=== PATIENT | female | born 1955 | race Caucasian/White ===

== ENCOUNTER → 2016-04-03 | Outpatient (CLI) | payer BC ==
[2016-04-03 11:12] LABS: BASO % 0.3 %; BASO ABS # 0.03 K/uL (0-0.2); COMPLETE YES; EOS % 1.7 %; HEMATOCRIT 41.7 % (37-47); IG% 0.3 %; LYMPH % 36.1 %; LYMPH ABS # 3.11 K/uL (1.2-3.4); MEAN CELL VOLUME 90.7 fL (80-100); MEAN CORPUSCULAR HGB CONC 33.1 g/dl (32-36); MEAN PLATELET VOLUME 9.9 fL (7.4-10.4); MONO % 8.8 %; NEUT % 52.8 %; PLATELET COUNT 331 K/uL (130-400); WHITE BLOOD COUNT 8.61 K/uL (4.8-10.8)
[2016-04-03 11:59] LABS: BLOOD UREA NITROGEN 12 mg/dl (7-18); BUN/CREATININE RATIO 16.2 (10-20); CALCIUM 9.2 mg/dl (8.5-10.1); CARBON DIOXIDE 24 mmol/L (21-32); CHLORIDE 103 mmol/L (98-107); CHOLESTEROL 253 mg/dl (0-200); CREATININE 0.74 mg/dl (0.60-1.20); GLUCOSE 86 mg/dl (70-99); POTASSIUM 4.1 mmol/L (3.5-5.1); SODIUM 139 mmol/L (136-145)
[2016-04-03 12:03] LABS: CHOLESTEROL/HDL RATIO 4.7; HDL CHOLESTEROL 54 mg/dl; LDL CHOLESTEROL CALCULATED 165 mg/dl; TRIGLYCERIDES 169 mg/dl (0-150); VERY LOW DENSITY LIPOPROT CALC 34 mg/dl
== END | disposition home or self-care (01) ==
LOC: C.LAB1850 10:03
PROVIDERS: ATTEND Internal Medicine
DX: E78.5 Hyperlipidemia, unspecified (principal); R53.83 Other fatigue; R73.9 Hyperglycemia, unspecified

== ENCOUNTER → 2016-05-16 | Outpatient (CLI) | payer BC ==
--- NOTE | 2016-05-16 16:36 | MAMMOGRAPHY REPORT ---
BILATERAL DIGITAL SCREENING MAMMOGRAM WITH CAD: 05/16/2016 CLINICAL HISTORY: Routine screening. Patient has no complaints. TECHNIQUE: Current study was also evaluated with a Computer Aided Detection (CAD) system. Bilatera l CC and MLO views were obtained. COMPARISON: Comparison is made to exams dated: 05/04/2015 mammogram, 04/01/2014 mammogram, 03/25/2013 u ltrasound, and 03/25/2013 mammogram - [facility]. BREAST COMPOSITION: There are scattered areas of fibroglandular density in both breasts. FINDINGS: No suspicious masses, calcifications, or areas of architectural distortion are noted in e ither breast. There has been no significant interval change compared to prior exams. Small bilatera l circumscribed benign-appearing masses seen within the left medial anterior breast are not signific antly changed. Benign-appearing calcifications in the left medial posterior breast are also stable compared to multiple prior exams. IMPRESSION: ACR BI-RADS CATEGORY 2: BENIGN There is no mammographic evidence of malignancy. A 1 year screening mammogram is recommended. The p atient will receive written notification of the results. Approximately 10% of breast cancers are not detected with mammography. A negative mammographic repor t should not delay biopsy if a clinically suggestive mass is present. Gabby Mendoza M.D. /:05/16/2016 15:46:35 Editor School Photograph: Carline Dorman, [facility] letter sent: Normal 1/2 BI-RADS Code: ACR BI-RADS Category 2: Benign
== END | disposition home or self-care (01) ==
LOC: C.MAMM 14:44
PROVIDERS: ATTEND Internal Medicine
DX: Z12.31 Encounter for screening mammogram for malignant neoplasm of breast (principal)

== ENCOUNTER → 2016-07-10 | Outpatient (CLI) | payer OTHER | LOC: C.PATH 17:04 | PROVIDERS: ATTEND Dermatology | DX: D49.2 Neoplasm of unspecified behavior of bone, soft tissue, and skin (principal); L81.4 Other melanin hyperpigmentation ==

== ENCOUNTER → 2016-08-06 | Outpatient (CLI) | payer OTHER | END | disposition home or self-care (01) | LOC: C.PATHSPEC 11:18 | PROVIDERS: ATTEND Plastic Surgery | DX: D23.39 Other benign neoplasm of skin of other parts of face (principal) ==

== ENCOUNTER → 2016-08-29 | Outpatient (CLI) | payer OTHER | END | disposition home or self-care (01) | LOC: C.PATHSPEC 16:14 | PROVIDERS: ATTEND Dermatology | DX: L82.0 Inflamed seborrheic keratosis (principal) ==

== ENCOUNTER 2018-11-16 04:21 | Inpatient (IN) ==
--- OUTSIDE RECORDS SUMMARY | 2018-11-16 04:23 | External Medical Summary | Continuity of Care Document ---
:1955 Author Name Karly Wheeler, Provider Address Unavailable Unavailable , Care Team Providers Name Role Phone Adrian Isabel M.D. Unavailable [email or web address] [email or web address] Unavailable [email or web address] [email or web address] Jose Angel ISABEL M.D. 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) Neoplasm of uncertain behavior of skin (238.2) (D48.5) Seborrheic keratosis, inflamed (702.11) (L82.0) Hyperlipidemia (272.4) (E78.5) Hyperglycemia (790.29) (R73.9) Facial lesion (709.9) (L98.9) Need for hepatitis C screening test (V73.89) (Z11.59) Depression with anxiety (300.4) (F41.8) Fatigue (780.79) (R53.83) Rib pain on right side (786.50) (R07.81) Lumbar radiculopathy (724.4) (M54.16) Tobacco use (305.1) (Z72.0) Allergies and Adverse Reactions Sulfa Drugs (Allergy) Medications Fish Oil Double Strength 1200 MG Oral Capsule; TAKE 4 CAPSULE Daily AVI Marshall Start: 27-Sep-2010 Refills: 0 Amoxicillin-Pot Clavulanate 875-125 MG O ral Tablet; TAKE 1 TABLET EVERY 12 HOURS WITH MEALS UNTIL GONE. Liam Begum Start: 28-Dec-2016 Quantity: 20 Refills: 0 Citalopram Hydrobromide 40 MG Oral Tablet; TAKE 1 TABL ET DAILY. Liam Isabel Start: 12-Oct-2010 Quantity: 30 Refills: 11 Procedures History of Oophorectomy - Bilateral (Removal Of Both Ovaries ) Status: Completed History of Small Bowel Resection Status: Completed Immunizations Influenza On: 24-Jan-2012 10:20 Lot #: [id number], [employer] Influenza On: 15-Jan-2013 9:28 Lot #: [id number], [employer]FI [employer]UR Fluzone INJ On: 10-Feb-2015 10:24 Lot #: [id number], [employer]OFI PA[employer]UR Family History Mother Family history of Diabetes Mellitus (V18.0) Status: Active Father Family history of malignant neoplasm (V16.9) (Z80.9) Status: Active Social History - Smoking Status Smoker. current status unknown Interventions Medication ChangesAmoxicillin-Pot Clavulanate 875-125 MG Oral Tablet - Start Plan of Treatment Planned Observations Planned Goals not documented Results No Known Results Results not documented Encounters Appointment; Friday, Provider 28-Dec-2016 9:00 Encounter Diagnosis: Problem not documented
[2018-11-16] MEDS ORDERED: ONDANSETRON INJ 2 MG/ML 2 ML VIAL IV STA (04:43)
[2018-11-16] MEDS ORDERED: HYDROmorphone INJ 0.5 MG/0.5 ML SYR IV STA ×2 (04:43→06:37)
[2018-11-16] MEDS ORDERED: SODIUM CHLORIDE 0.9% 500 ML IV SCH ×2 (04:45→06:15)
[2018-11-16 05:05] LABS: Basophils # (auto) 0.02 K/uL (0-0.2); Basophils % (auto) 0.1 %; Eosinophils # (auto) 0.08 K/uL (0-0.5); Eosinophils % (auto) 0.5 %; Hematocrit (blood only) 42.3 % (37-47); Hemoglobin 14.4 g/dL (12.0-16.0); Immature Granulocytes # (auto) 0.03 K/uL (0.00-0.02); Immature Granulocytes % (auto) 0.2 %; Lymphocytes # (auto) 1.75 K/uL (1.2-3.4); Lymphocytes % (auto) 11.7 %; Mean Corpuscular Hemoglobin 31.5 pg (25-34); Mean Corpuscular Volume 92.6 fL (80-100); Mean Platelet Volume 10.1 fL (7.4-10.4); Monocytes # (auto) 0.54 K/uL (0.11-0.59); Monocytes % (auto) 3.6 %; Neutrophils # (auto) 12.49 K/uL (1.4-6.5); Neutrophils % (auto) 83.9 %; Platelet Count 267 K/uL (130-400); RDW Coefficient of Variation 12.7 % (11.5-14.5); RDW Standard Deviation 42.8 fL (36.4-46.3); Red Blood Count 4.57 M/uL (4.2-5.4); White Blood Count 14.91 K/uL (4.8-10.8)
[2018-11-16 05:22] LABS: Alanine Aminotransferase 45 U/L (12-78); Albumin Level 3.7 gm/dl (3.4-5.0); Aspartate Aminotransferase 16 U/L (15-37); BUN Creatinine Ratio 31.4 (10-20); Blood Urea Nitrogen 21 mg/dl (7-18); Calcium 9.4 mg/dl (8.5-10.1); Carbon Dioxide 30 mmol/L (21-32); Chloride 104 mmol/L (98-107); Est GFR (African American) 107.7; Est GFR (Non-African American) 92.9; Glucose 129 mg/dl (70-99); Lipase 55 U/L (73-393); Potassium 3.6 mmol/L (3.5-5.1); Sodium 141 mmol/L (136-145)
[2018-11-16 05:25] LABS: Albumin Globulin Ratio 1.1 (0.9-2); Alkaline Phosphatase 78 U/L (45-117); Bilirubin,Total 0.6 mg/dl (0.2-1); Globulin 3.4 gm/dl (2.5-4.0); Total Protein 7.1 gm/dl (6.4-8.2)
[2018-11-16 05:30] LABS: POC Urine Blood 50 (Negative); POC Urine Glucose 1000 (Normal); POC Urine Ketones Negative (Negative); POC Urine Leukocytes Negative (Negative); POC Urine Nitrite Negative (Negative); POC Urine Protein Trace (Negative)
[2018-11-16 05:36] LABS: Appearance Urine Clear (Clear); Bacteria Urine Automated Negative (Negative); Bilirubin Urine Negative (Negative); Blood Urine 1+ (Negative); Cast Urine Automated 0 /lpf (0-5); Color Urine Yellow; Glucose Urine UA 3+ (Negative); Ketones Urine Negative (Negative); Leukocyte Esterase Urine Negative (Negative); Nitrite Urine Negative (Negative); Protein Urine Negative (Negative); RBC Urine Automated 0-4 /hpf (0-4); Specific Gravity Urine 1.022 (1.000-1.030); Urobilinogen Urine Negative (Negative)
[2018-11-16] MEDS ORDERED: IOVERSOL 100ml IV PRN (05:38)
[2018-11-16 06:28] LABS: Estimated Average Glucose 114 mg/dl; Hemoglobin A1C 5.6 % (4.5-5.6)
--- NOTE | 2018-11-16 07:12 | Emergency Department Note ---
Entered by Rubina Mora acting as a scribe for History of Present Illness General Chief complaint: Abdominal Pain Stated complaint: BACK PAIN, ABD PAIN Time Seen by Provider: 11/16/18 04:30 Source: patient History of Present Illness Onset (ago): hour(s) 5 Location: abdomen Radiation: back Severity: similar to prior episodes Pain Consistency: + intermittent Maximum Pain Intensity: 4 Quality: + burning Exacerbated By: + movement Associated symptoms: + nausea/vomiting, + shortness of breath and + other (positive increased frequency of urination; negative burning with urination; negative leg cramping; negative leg swelling) The patient is a 63 year old female who presents to the Emergency Room with complaints of intermittent abdominal pain that began at about 2330, 5 hours prior to arrival. The patient states that her pain radiates around to her back and she describes her pain as a burning. She reports shortness of breath and nausea with each episode, and states that she vomited once since her pain began. The patient states that she has an episode of this pain about every 15 minutes. She states that her pain is exacerbated with movement. She states that this is similar to a prior episode of a bowel obstruction several years ago. The patient denies burning with urination, leg cramping, and leg swelling. The patient states that she just got home from vacation 2 days ago and believed she may have a bladder infection as she has had increased frequency of urination. She denies any recent trauma. The patient states that she lost 70 pounds over the last 18 months through [employer]. Home Medications Home Medications Medication Instructions Recorded Confirmed Type No Known Home Medications 11/16/18 11/16/18 History Allergies Allergy/AdvReac Type Severity Reaction Status Date / Time Sulfa (Sulfonamide Allergy Intermediate HIVES Verified 11/16/18 05:11 Antibiotics) Past Med/Surg History Family History Other No pertinent family history in first degree relatives Social History Preferred Language: Italian Communication Ability: Effective Beliefs That Will Affect Care: None Current Living Situation: Spouse Other Information That Helps Us Care for You: No Feels Safe at Home: Yes Safety Concerns: Feels Safe At This Time Smoking Status: Current every day smoker Tobacco Type: cigarettes ; Cigarettes Per Day: 20 ; Hx Alcohol Use: No Hx Substance Use: No Review of Systems See HPI for pertinent positives & negatives. and A total of 10 systems reviewed and were otherwise negative Physical Exam Vital Signs Vital Signs - 24 hr 11/16/18 04:24 11/16/18 05:00 11/16/18 05:21 Temperature 36.7 C Temperature Source Oral Sepsis Recent Fever Within 48 Hours No Sepsis New/Unexplained Change in Mental Status No Sepsis Action Taken by Nursing No Action Required Pulse Rate 78 Pulse Rate [Finger] 63 Respiratory Rate 18 16 Respiratory Effort / Characteristics Non-Labored Spontaneous Respiratory Depth Normal Blood Pressure 125/69 Blood Pressure [Right Arm] 121/69 Blood Pressure Mean 87 Blood Pressure Mean [Right Arm] 86 Blood Pressure Position Sitting Pulse Oximetry 95 95 96 Oxygen Delivery Method Room Air Room Air Room Air 11/16/18 05:45 11/16/18 06:35 Temperature Temperature Source Sepsis Recent Fever Within 48 Hours Sepsis New/Unexplained Change in Mental Status Sepsis Action Taken by Nursing Pulse Rate Pulse Rate [Finger] 72 64 Respiratory Rate 18 18 Respiratory Effort / Characteristics Non-Labored Spontaneous Respiratory Depth Normal Blood Pressure Blood Pressure [Right Arm] 130/56 L 125/56 L Blood Pressure Mean Blood Pressure Mean [Right Arm] 80 79 Blood Pressure Position Pulse Oximetry 93 95 Oxygen Delivery Method Room Air HEENT: Head - normocephalic and atraumatic Pupils are equal, round, and reactive to light. Extraocular eye muscles are intact, and sclera are anicteric. Nose - moist nasal mucosa without discharge. Mouth - moist buccal mucosa. Oropharynx is nonerythematous and there is no tonsillar exudate or edema noted. Neck: Supple; no cervical lymphadenopathy or nuchal rigidity. Heart: Regular rate and rhythm. There is a normal S1 and S2 with no murmurs, clicks, or gallops appreciated. Lungs: Clear to auscultation bilaterally with no wheezes, rales, or rhonchi. Abdomen: Pain in the right upper quadrant with palpation. Soft, nondistended, with good bowel sounds. There are no palpable pulsatile masses or hepatosplenomegaly. There is no guarding, rigidity, or rebound noted. Extremities: No evidence of cyanosis, clubbing, or edema. There are easily palpable peripheral pulses. Skin: warm and dry with good turgor and no rashes. Course 0434: Past medical records reviewed. The patient was evaluated in room B7. A complete history and physical exam was performed. An IV lock was initiated and labs were drawn as above. 0444: Ordered Dilaudid 0.5 mg IV and Zofran 4 mg IV. Patient will go for plain films of the abdomen. 0515: Ordered Sodium Chloride 500 mls @ 999 mls/hr IV. 0518: Upon reevaluation, the patient states that she has not had any other episodes of pain. She will give a urine specimen and go for a CT. 0701: [facility]. Consultations Consultation #1: I [facility] evaluation. Time: 07:01 Administered Medications Acetaminophen (Tylenol) 650 mg PO Q4H PRN PRN Reason: pain/fever Stop: 12/16/18 09:20 Last Admin: 11/16/18 15:53 Dose: 650 mg Documented by: [id number] Parenteral Electrolytes (Normosol-R) 1,000 mls @ 80 mls/hr IV .[id number] LUKE Stop: 12/16/18 09:44 Last Admin: 11/16/18 22:39 Dose: 80 mls/hr Documented by: [id number] Infusion: 11/16/18 22:14 Dose: 80 mls/hr Documented by: [id number] Admin: 11/16/18 09:44 Dose: 80 mls/hr Documented by: [id number] Famotidine 20 mg/ Syringe 5 mls @ 2.5 mls/min IV DAILY LUKE Stop: 12/16/18 10:29 Last Admin: 11/16/18 10:46 Dose: 2.5 mls/min Documented by: [id number] Ciprofloxacin (Cipro) 400 mg in 200 mls @ 100 mls/hr IV BID LUKE; Protocol Stop: 11/18/18 12:44 Last Infusion: 11/17/18 00:32 Dose: 0 mls/hr Documented by: [id number] Admin: 11/16/18 22:30 Dose: 100 mls/hr Documented by: [id number] Infusion: 11/16/18 17:01 Dose: 0 mls/hr Documented by: [id number] Admin: 11/16/18 14:19 Dose: 100 mls/hr Documented by: [id number] Morphine Sulfate (Morphine Sulfate) 4 mg IV Q4H PRN PRN Reason: Pain Stop: 11/30/18 08:33 Last Admin: 11/16/18 08:37 Dose: 4 mg Documented by: [id number] Ondansetron HCl (Zofran) 4 mg IV Q4H PRN PRN Reason: Nausea Stop: 12/16/18 09:20 Last Admin: 11/16/18 14:16 Dose: 4 mg Documented by: [id number] Discontinued Medications Hydromorphone HCl (Dilaudid) 0.5 mg IV NOW STA Stop: 11/16/18 04:44 Last Admin: 11/16/18 05:01 Dose: 0.5 mg Documented by: [id number] Hydromorphone HCl (Dilaudid) 0.5 mg IV NOW STA Stop: 11/16/18 06:38 Last Admin: 11/16/18 06:38 Dose: 0.5 mg Documented by: [id number] Sodium Chloride (Nss) 500 mls @ 999 mls/hr IV .Q31M LUKE Stop: 11/16/18 05:15 Last Infusion: 11/16/18 05:28 Dose: 0 mls/hr Documented by: [id number] Admin: 11/16/18 05:01 Dose: 999 mls/hr Documented by: [id number] Sodium Chloride (Nss) 500 mls @ 125 mls/hr IV .Q4H LUKE Stop: 12/16/18 06:14 Last Infusion: 11/16/18 09:30 Dose: 0 mls/hr Documented by: [id number] Admin: 11/16/18 06:15 Dose: 125 mls/hr Documented by: [id number] Ioversol (Optiray 320 100ml) 94 ml IV ONCE PRN PRN Reason: Interaction Checking Stop: 11/20/18 05:37 Last Admin: 11/16/18 05:39 Dose: 94 ml Documented by: [id number] Ondansetron HCl (Zofran) 4 mg IV NOW STA Stop: 11/16/18 04:44 Last Admin: 11/16/18 05:01 Dose: 4 mg Documented by: [id number] Medical Decision Making Differential Diagnosis Differential diagnoses include small bowel obstruction, ureteral colic, pyelonephritis, cholecystitis, colitis, and others were considered. Medical Records Attestation: I reviewed the patient's medical records. Home Medications Current Medication List: was personally reviewed by me Laboratory Data Attestation: I reviewed the patient's lab results. Result diagrams: 11/16/18 04:56 11/16/18 04:56 Lab Results 11/16/18 11/16/18 11/16/18 Range/Units 04:56 04:56 04:56 WBC 14.91 H (4.8-10.8) K/uL RBC 4.57 (4.2-5.4) M/uL Hgb 14.4 (12.0-16.0) g/dL Hct 42.3 (37-47) % MCV 92.6 (80-100) fL MCH 31.5 (25-34) pg MCHC 34.0 (32-36) g/dL RDW Std Deviation 42.8 (36.4-46.3) fL RDW Coeff of Aster 12.7 (11.5-14.5) % Plt Count 267 (130-400) K/uL MPV 10.1 (7.4-10.4) fL Immature Gran % (Auto) 0.2 % Neut % (Auto) 83.9 % Lymph % (Auto) 11.7 % [place] % (Auto) 3.6 % Eos % (Auto) 0.5 % Baso % (Auto) 0.1 % Immature Gran # (Auto) 0.03 H (0.00-0.02) K/uL Neut # (Auto) 12.49 H (1.4-6.5) K/uL Lymph # (Auto) 1.75 (1.2-3.4) K/uL [place] # (Auto) 0.54 (0.11-0.59) K/uL Eos # (Auto) 0.08 (0-0.5) K/uL Baso # (Auto) 0.02 (0-0.2) K/uL Sodium 141 (136-145) mmol/L Potassium 3.6 (3.5-5.1) mmol/L Chloride 104 (98-107) mmol/L Carbon Dioxide 30 (21-32) mmol/L Anion Gap 7.0 (3-11) BUN 21 H (7-18) mg/dl Creatinine 0.67 (0.6-1.2) mg/dl Est Cr Clr Drug Dosing Not Reportable Est GFR ( Amer) 107.7 Est GFR (Non-Af Amer) 92.9 BUN/Creatinine Ratio 31.4 H (10-20) Glucose 129 H (70-99) mg/dl Estimat Average Glucose 114 mg/dl Hemoglobin A1c 5.6 (4.5-5.6) % Lactate (0.4-2.0) mmol/L Calcium 9.4 (8.5-10.1) mg/dl Total Bilirubin 0.6 (0.2-1) mg/dl AST 16 (15-37) U/L ALT 45 (12-78) U/L Alkaline Phosphatase 78 (45-117) U/L Total Protein 7.1 (6.4-8.2) gm/dl Albumin 3.7 (3.4-5.0) gm/dl Globulin 3.4 (2.5-4.0) gm/dl Albumin/Globulin Ratio 1.1 (0.9-2) Lipase 55 L (73-393) U/L Urine Color Urine Appearance (Clear) Urine pH (4.5-7.5) POC Urine pH Ur Specific [place] (1.000-1.030) Urine Protein (Negative) POC Urine Protein (Negative) Urine Glucose (UA) (Negative) POC Ur Glucose (UA) (Normal) Urine Ketones (Negative) POC Urine Ketones (Negative) Urine Blood (Negative) POC Urine Blood (Negative) Urine Nitrite (Negative) POC Urine Nitrite (Negative) Urine Bilirubin (Negative) POC Urine Bilirubin Urine Urobilinogen (Negative) POC Urine Urobilinogen Ur Leukocyte Esterase (Negative) POC U Leukocyte Esteras (Negative) Urine WBC (Auto) (0-5) /hpf Urine RBC (Auto) (0-4) /hpf U Hyaline Cast (Auto) (0-5) /lpf U Epithel Cells (Auto) (0-5) /lpf Urine Bacteria (Auto) (Negative) 11/16/18 11/16/18 11/16/18 Range/Units 05:20 05:20 07:00 WBC (4.8-10.8) K/uL RBC (4.2-5.4) M/uL Hgb (12.0-16.0) g/dL Hct (37-47) % MCV (80-100) fL MCH (25-34) pg MCHC (32-36) g/dL RDW Std Deviation (36.4-46.3) fL RDW Coeff of Aster (11.5-14.5) % Plt Count (130-400) K/uL MPV (7.4-10.4) fL Immature Gran % (Auto) % Neut % (Auto) % Lymph % (Auto) % [place] % (Auto) % Eos % (Auto) % Baso % (Auto) % Immature Gran # (Auto) (0.00-0.02) K/uL Neut # (Auto) (1.4-6.5) K/uL Lymph # (Auto) (1.2-3.4) K/uL [place] # (Auto) (0.11-0.59) K/uL Eos # (Auto) (0-0.5) K/uL Baso # (Auto) (0-0.2) K/uL Sodium (136-145) mmol/L Potassium (3.5-5.1) mmol/L Chloride (98-107) mmol/L Carbon Dioxide (21-32) mmol/L Anion Gap (3-11) BUN (7-18) mg/dl Creatinine (0.6-1.2) mg/dl Est Cr Clr Drug Dosing Est GFR ( Amer) Est GFR (Non-Af Amer) BUN/Creatinine Ratio (10-20) Glucose (70-99) mg/dl Estimat Average Glucose mg/dl Hemoglobin A1c (4.5-5.6) % Lactate 1.4 (0.4-2.0) mmol/L Calcium (8.5-10.1) mg/dl Total Bilirubin (0.2-1) mg/dl AST (15-37) U/L ALT (12-78) U/L Alkaline Phosphatase (45-117) U/L Total Protein (6.4-8.2) gm/dl Albumin (3.4-5.0) gm/dl Globulin (2.5-4.0) gm/dl Albumin/Globulin Ratio (0.9-2) Lipase (73-393) U/L Urine Color Yellow Urine Appearance Clear (Clear) Urine pH 6.0 (4.5-7.5) POC Urine pH Not Reportable Ur Specific [place] 1.022 (1.000-1.030) Urine Protein Negative (Negative) POC Urine Protein Trace H (Negative) Urine Glucose (UA) 3+ H (Negative) POC Ur Glucose (UA) 1000 H (Normal) Urine Ketones Negative (Negative) POC Urine Ketones Negative (Negative) Urine Blood 1+ H (Negative) POC Urine Blood 50 H (Negative) Urine Nitrite Negative (Negative) POC Urine Nitrite Negative (Negative) Urine Bilirubin Negative (Negative) POC Urine Bilirubin Not Reportable Urine Urobilinogen Negative (Negative) POC Urine Urobilinogen Not Reportable Ur Leukocyte Esterase Negative (Negative) POC U Leukocyte Esteras Negative (Negative) Urine WBC (Auto) 1-5 (0-5) /hpf Urine RBC (Auto) 0-4 (0-4) /hpf U Hyaline Cast (Auto) 0 (0-5) /lpf U Epithel Cells (Auto) 5-10 H (0-5) /lpf Urine Bacteria (Auto) Negative (Negative) Imaging Data Attestation: I personally reviewed and interpreted this imaging study as follows: My Impression: ABDOMINAL X-RAY OBSTRUCTION SERIES Small gastric bubble. No obvious free air. Significant colonic fecal retention. Radiologist's Impression: Radiology results as stated below per my review and the radiologist's interpretation: CT ABDOMEN & PELVIS With Contrast: Normal appendix. Dilated small bowel loops which are mostly fluid-filled in the lower abdomen and pelvis. Smaller caliber distal loops. Likely represents wall bowel obstruction with transition in the right abdomen. Mild mesenteric edema associated with the dilated loops in the right abdomen. Ischemic component not excluded. No free air. Minimal free fluid in the pelvis. Colonic diverticulosis. Liver low-density lesions in the right hepatic lobe, not adequately characterized. Compare to priors or consider liver protocol CT/MR non-emergently to characterize Radiologist: Gaetano Richmond M.D. Study ready at 05:45 and initial results transmitted at 06:01 Blood Pressure Blood Pressure Findings: Elevated blood pressure Blood Pressure Disposition: further management by hospitalist MARIN Rushing The patient is a 63 year old female who presents to the Emergency Room with complaints of intermittent abdominal pain that began at about 2330, 5 hours prior to arrival. The patient has a history of a previous bowel obstruction many years ago after a tubal ligation. Patient presents with similar pain tonight. X-ray was unremarkable but CT scan shows evidence of dilated loops of bowel containing fluid. There is a transition point. It seems that the patient has a small bowel obstruction. Patient was also noted to have significant glucose urea. Hemoglobin A1c is pending at this time. The patient received 2 doses of IV Dilaudid for her abdominal pain. Impression & Plan Small bowel obstruction, Hyperglycemia Discharge Plan Visit Data *Final* Discharge Date/Time: 11/16/18 08:57 Chief Complaint: Abdominal Pain Stated Complaint: BACK PAIN, ABD PAIN ED Provider: Josi Martinez Discharge Problem: Small bowel obstruction, Hyperglycemia Patient Disposition: Admitted As Inpatient Discharge Instructions Interventions: ED Discharge Assessment Last Done: 11/16/18 08:57 The scribe's documentation has been prepared under my direction and personally reviewed by me in its entirety. I confirm that the note above accurately reflects all work, treatment, procedures, and medical decision making performed by me.
--- NOTE | 2018-11-16 07:15 | CT Scan Report ---
ABDOMEN AND PELVIS CT WITH IV CONTRAST CT DOSE: 266.57 mGy.cm HISTORY: Lower abdominal pain. eval for bowel obstruction or free air TECHNIQUE: Multiaxial CT images of the abdomen and pelvis were performed following the use of intrave nous contrast. A dose lowering technique was utilized adhering to the principles of ALARA. COMPARISON STUDY: None. FINDINGS: Mild dependent changes seen at the lung bases. No pneumoperitoneum. No pneumatosis. An 8 mm sclerotic focus within the right side of the L3 vertebral body on image 187. The spleen, adrenal gla nds, pancreas, kidneys, and gallbladder are unremarkable. There are a few hypodense lesions within th e right hepatic lobe with the largest measuring 1.6 cm. These are incompletely characterized on this single phase study. No retroperitoneal lymphadenopathy. Small calcified uterine fibroid. Normal bladd er. Colonic diverticulosis. No evidence for diverticulitis. Normal appendix. A few dilated loops of m id small bowel with a possible transition point seen within the right lower quadrant on image 238. Th e distal loops of small bowel are decompressed. This likely represents a bowel obstruction. There is mild mesenteric edema within the abdomen surrounding the dilated loops of small bowel. IMPRESSION: 1. A few dilated loops of mid small bowel with a transition point within the right lower quadrant con sistent with a small bowel obstruction. There is mild mesenteric edema surrounding the dilated loops of small bowel within the abdomen. 2. An 8 mm sclerotic focus within the right side of the L3 vertebral body which is indeterminate. How ever, in the absence of a known malignancy this favors a bone island. 3. A few indeterminate hypodense lesions within the liver. Follow-up nonemergent MRI or comparison to prior studies can be performed for further characterization. 4. Additional findings as described above. Electronically signed by: Vitor Miller M.D. 11/16/2018 7:14 AM
--- NOTE | 2018-11-16 07:21 | XRay Report ---
PA CHEST RADIOGRAPH AND UPRIGHT AND SUPINE AP RADIOGRAPHS OF THE ABDOMEN CLINICAL HISTORY: Abdominal pain and nausea. Evaluate for small bowel obstruction. COMPARISON STUDY: Chest radiograph August 22, 2013. FINDINGS: No consolidation is present. There is no pneumothorax or pleural effusion. Cardiomediastin al silhouette is normal. There is no free air. Moderate amount stool is noted. IMPRESSION: 1. No free air. Subsequent CT demonstrated fluid-filled small bowel loops and transition point consis tent with a small bowel obstruction. These fluid-filled loops are occult by radiography. 2. No acute cardiopulmonary findings. Electronically signed by: Brett Hong M.D. 11/16/2018 7:20 AM
[2018-11-16] MEDS ORDERED: MoRPHine SULFATE 4 MG/ML 1 ML CARP\\VIAL IV PRN (08:34)
[2018-11-16] MEDS ORDERED: ACETAMINOPHEN 325 MG TAB PO PRN (09:21)
[2018-11-16] MEDS ORDERED: ONDANSETRON INJ 2 MG/ML 2 ML VIAL IV PRN (09:21)
[2018-11-16] MEDS: NORMOSOL-R 1,000 ML IV SCH ×2 (09:44→22:39)
--- NOTE | 2018-11-16 10:15 | Surgery Consultation ---
Date of Consultation November 16, 2018 Assessment & Plan (1) Small bowel obstruction: 63 year-old female with history of SBO and exploratory laparotomy (unknown if bowel resected) in 1999 who presented to emergency department this morning with complaint of abdominal pain , nausea, and one episode of vomiting. Pain similar to prior SBO. Pain waking and waning. Labs show leukocytosis of 14K. Lactic acid wnl at 1.4. Abdomen soft, nondistended, faint bowel sounds in LUQ, tenderness in RUQ. No peritonitis. Plan: Recommend to continue conservative management at this time. No acute surgical intervention required. Continue IV fluids, NPO and bowel rest, Pain management as needed but limit narcotics if possible, IV zofran prn nausea. Add IV Pepcid given GERD symptoms Encouraged OOB to chair and ambulate hallway as much as she can Continue medical management start IV antibiotic repeat labs and KUB in the morning will F/U Dr. Merida was present during my examination and agrees with above. History of Present Illness Reason for Consultation: SBO Requesting Physician: Benja Torres MD Attending Physician: Benja Torres MD History of Present Illness Miladis is a pleasant 63 year-old female who presented to emergency department this morning with complaint of abdominal pain with nausea and one episode of vomiting that began last night around 11 pm. States she was not feeling well over the weekend after returning from a trip but then the pain increased last evening. Pain around belly button and radiates to sides bilaterally. Cramping pain that comes and goes. States pain is severe when is comes though. Last bowel movement this morning, normal and formed. Usually has bowel movement daily. Denies of any fever, chills, chest pain, shortness of breath, changes in bowel habits, diarrhea, constipation, blood in stools, black/tarry stools. She has history of small bowel obstruction in the past which required ex lap. She is unsure if she had small bowel resected at that time. Prior history of laparoscopic oophorectomy and tubal ligation (two separate procedures) Er work-up included labs which showed leukocytosis of 14K. CT scan of abdomen and pelvis with IV contrast showing dilated small bowel loops in the right lower abdomen with transition point and some mesenteric edema however no pneumatosis. Lactic acid of 1.4 She states she is feeling better since admission but states she was given Morphine which helped alleviate the pain. No further nausea but feeling some heartburn now. Allergies Allergy/AdvReac Type Severity Reaction Status Date / Time Sulfa (Sulfonamide Allergy Intermediate HIVES Verified 11/16/18 05:11 Antibiotics) Home Medications Home Medications Medication Instructions Recorded Confirmed Type No Known Home Medications 11/16/18 11/16/18 History Patient History Medical History Bowel obstruction (Resolved) GERD (gastroesophageal reflux disease) (Chronic) Surgical History H/O exploratory laparotomy History of oophorectomy History of tubal ligation Family History Other No pertinent family history in first degree relatives Social History Preferred Language: Latvian Communication Ability: Effective Beliefs That Will Affect Care: None Current Living Situation: Spouse Other Information That Helps Us Care for You: No Feels Safe at Home: Yes Safety Concerns: Feels Safe At This Time Smoking Status: Current every day smoker Tobacco Type: cigarettes ; Cigarettes Per Day: 20 ; Hx Alcohol Use: No Hx Substance Use: No Review of Systems Review of Systems: All systems reviewed & are unremarkable except as noted in HPI & below Physical Exam Constitutional: WD/WN, vitals as above no acute distress Respiratory: normal respiratory effort, lungs clear to auscultation Cardiovascular: RRR, no murmur, no edema Gastrointestinal (Abdomen): Inspection/Auscultation: abdomen normal to inspection and + abdominal surgical scar (midline laparotomy scar present); abdomen not distended and + abnormal bowel sounds (hypoactive, some bowel sounds in LUQ) Percussion/Palpation: + abdomen tender (RUQ) and abdomen soft; no guarding and abdomen not rigid Skin: no rashes, warm and dry Psychiatric: A+Ox3, euthymic affect Results & Data Vital Signs (Past 12 Hours) Vital Signs Temp Pulse Pulse Resp BP BP Pulse Ox 11/16/18 09:11 36.7 C 67 18 116/66 95 11/16/18 08:28 60 16 120/68 98 11/16/18 06:35 64 18 125/56 L 95 11/16/18 05:45 72 18 130/56 L 93 11/16/18 05:21 63 16 121/69 96 11/16/18 05:00 95 09/23/19 04:24 36.7 C 78 18 125/69 95 Laboratory Results 11/16/18 11/16/18 11/16/18 Range/Units 07:00 05:20 05:20 WBC (4.8-10.8) K/uL RBC (4.2-5.4) M/uL Hgb (12.0-16.0) g/dL Hct (37-47) % MCV (80-100) fL MCH (25-34) pg MCHC (32-36) g/dL RDW Std Deviation (36.4-46.3) fL RDW Coeff of Aster (11.5-14.5) % Plt Count (130-400) K/uL MPV (7.4-10.4) fL Immature Gran % (Auto) % Neut % (Auto) % Lymph % (Auto) % [place] % (Auto) % Eos % (Auto) % Baso % (Auto) % Immature Gran # (Auto) (0.00-0.02) K/uL Neut # (Auto) (1.4-6.5) K/uL Lymph # (Auto) (1.2-3.4) K/uL [place] # (Auto) (0.11-0.59) K/uL Eos # (Auto) (0-0.5) K/uL Baso # (Auto) (0-0.2) K/uL Sodium (136-145) mmol/L Potassium (3.5-5.1) mmol/L Chloride (98-107) mmol/L Carbon Dioxide (21-32) mmol/L Anion Gap (3-11) BUN (7-18) mg/dl Creatinine (0.6-1.2) mg/dl Est Cr Clr Drug Dosing Est GFR ( Amer) Est GFR (Non-Af Amer) BUN/Creatinine Ratio (10-20) Glucose (70-99) mg/dl Estimat Average Glucose mg/dl Hemoglobin A1c (4.5-5.6) % Lactate 1.4 (0.4-2.0) mmol/L Calcium (8.5-10.1) mg/dl Total Bilirubin (0.2-1) mg/dl AST (15-37) U/L ALT (12-78) U/L Alkaline Phosphatase (45-117) U/L Total Protein (6.4-8.2) gm/dl Albumin (3.4-5.0) gm/dl Globulin (2.5-4.0) gm/dl Albumin/Globulin Ratio (0.9-2) Lipase (73-393) U/L Urine Color Yellow Urine Appearance Clear (Clear) Urine pH 6.0 (4.5-7.5) POC Urine pH Pending Ur Specific [place] 1.022 (1.000-1.030) Urine Protein Negative (Negative) POC Urine Protein Trace H (Negative) Urine Glucose (UA) 3+ H (Negative) POC Ur Glucose (UA) 1000 H (Normal) Urine Ketones Negative (Negative) POC Urine Ketones Negative (Negative) Urine Blood 1+ H (Negative) POC Urine Blood 50 H (Negative) Urine Nitrite Negative (Negative) POC Urine Nitrite Negative (Negative) Urine Bilirubin Negative (Negative) POC Urine Bilirubin Pending Urine Urobilinogen Negative (Negative) POC Urine Urobilinogen Pending Ur Leukocyte Esterase Negative (Negative) POC U Leukocyte Esteras Negative (Negative) Urine WBC (Auto) 1-5 (0-5) /hpf Urine RBC (Auto) 0-4 (0-4) /hpf U Hyaline Cast (Auto) 0 (0-5) /lpf U Epithel Cells (Auto) 5-10 H (0-5) /lpf Urine Bacteria (Auto) Negative (Negative) 11/16/18 11/16/18 11/16/18 Range/Units 04:56 04:56 04:56 WBC 14.91 H (4.8-10.8) K/uL RBC 4.57 (4.2-5.4) M/uL Hgb 14.4 (12.0-16.0) g/dL Hct 42.3 (37-47) % MCV 92.6 (80-100) fL MCH 31.5 (25-34) pg MCHC 34.0 (32-36) g/dL RDW Std Deviation 42.8 (36.4-46.3) fL RDW Coeff of Aster 12.7 (11.5-14.5) % Plt Count 267 (130-400) K/uL MPV 10.1 (7.4-10.4) fL Immature Gran % (Auto) 0.2 % Neut % (Auto) 83.9 % Lymph % (Auto) 11.7 % [place] % (Auto) 3.6 % Eos % (Auto) 0.5 % Baso % (Auto) 0.1 % Immature Gran # (Auto) 0.03 H (0.00-0.02) K/uL Neut # (Auto) 12.49 H (1.4-6.5) K/uL Lymph # (Auto) 1.75 (1.2-3.4) K/uL [place] # (Auto) 0.54 (0.11-0.59) K/uL Eos # (Auto) 0.08 (0-0.5) K/uL Baso # (Auto) 0.02 (0-0.2) K/uL Sodium 141 (136-145) mmol/L Potassium 3.6 (3.5-5.1) mmol/L Chloride 104 (98-107) mmol/L Carbon Dioxide 30 (21-32) mmol/L Anion Gap 7.0 (3-11) BUN 21 H (7-18) mg/dl Creatinine 0.67 (0.6-1.2) mg/dl Est Cr Clr Drug Dosing Not Reportable Est GFR ( Amer) 107.7 Est GFR (Non-Af Amer) 92.9 BUN/Creatinine Ratio 31.4 H (10-20) Glucose 129 H (70-99) mg/dl Estimat Average Glucose 114 mg/dl Hemoglobin A1c 5.6 (4.5-5.6) % Lactate (0.4-2.0) mmol/L Calcium 9.4 (8.5-10.1) mg/dl Total Bilirubin 0.6 (0.2-1) mg/dl AST 16 (15-37) U/L ALT 45 (12-78) U/L Alkaline Phosphatase 78 (45-117) U/L Total Protein 7.1 (6.4-8.2) gm/dl Albumin 3.7 (3.4-5.0) gm/dl Globulin 3.4 (2.5-4.0) gm/dl Albumin/Globulin Ratio 1.1 (0.9-2) Lipase 55 L (73-393) U/L Urine Color Urine Appearance (Clear) Urine pH (4.5-7.5) POC Urine pH Ur Specific [place] (1.000-1.030) Urine Protein (Negative) POC Urine Protein (Negative) Urine Glucose (UA) (Negative) POC Ur Glucose (UA) (Normal) Urine Ketones (Negative) POC Urine Ketones (Negative) Urine Blood (Negative) POC Urine Blood (Negative) Urine Nitrite (Negative) POC Urine Nitrite (Negative) Urine Bilirubin (Negative) POC Urine Bilirubin Urine Urobilinogen (Negative) POC Urine Urobilinogen Ur Leukocyte Esterase (Negative) POC U Leukocyte Esteras (Negative) Urine WBC (Auto) (0-5) /hpf Urine RBC (Auto) (0-4) /hpf U Hyaline Cast (Auto) (0-5) /lpf U Epithel Cells (Auto) (0-5) /lpf Urine Bacteria (Auto) (Negative) Diagnostic Findings ABDOMEN AND PELVIS CT WITH IV CONTRAST CT DOSE: 266.57 mGy.cm HISTORY: Lower abdominal pain. eval for bowel obstruction or free air TECHNIQUE: Multiaxial CT images of the abdomen and pelvis were performed following the use of intravenous contrast. A dose lowering technique was utilized adhering to the principles of ALARA. COMPARISON STUDY: None. FINDINGS: Mild dependent changes seen at the lung bases. No pneumoperitoneum. No pneumatosis. An 8 mm sclerotic focus within the right side of the L3 vertebral body on image 187. The spleen, adrenal glands, pancreas, kidneys, and gallbladder are unremarkable. There are a few hypodense lesions within the right hepatic lobe with the largest measuring 1.6 cm. These are incompletely characterized on this single phase study. No retroperitoneal lymphadenopathy. Small calcified uterine fibroid. Normal bladder. Colonic diverticulosis. No evidence for diverticulitis. Normal appendix. A few dilated loops of mid small bowel with a possible transition point seen within the right lower quadrant on image 238. The distal loops of small bowel are decompressed. This likely represents a bowel obstruction. There is mild mesenteric edema within the abdomen surrounding the dilated loops of small bowel. IMPRESSION: 1. A few dilated loops of mid small bowel with a transition point within the right lower quadrant consistent with a small bowel obstruction. There is mild mesenteric edema surrounding the dilated loops of small bowel within the abdomen. 2. An 8 mm sclerotic focus within the right side of the L3 vertebral body which is indeterminate. However, in the absence of a known malignancy this favors a bone island. 3. A few indeterminate hypodense lesions within the liver. Follow-up nonemergent MRI or comparison to prior studies can be performed for further characterization. 4. Additional findings as described above.
[2018-11-16] MEDS: FAMOTIDINE 20 MG in SYRINGE 3 ML IV SCH (10:46)
[2018-11-16] MEDS ORDERED: PATIENT'S HEIGHT AND/OR WEIGHT NEEDED SCH (13:00)
[2018-11-16] MEDS: CIPROFLOXACIN 400 MG/200 ML BAG IV SCH ×2 (14:19→22:30)
--- NOTE | 2018-11-16 17:43 | History & Physical Report ---
Date of Service November 16, 2018 Assessment & Plan (1) Bowel obstruction: S/p ex-lap in ~1999 for a similar issue. - NPO - IV fluids - Pain control - Seen by surgery, conservative management for now - Started on prophylactic abx for leukocytosis, though I think this may just be inflammatory. (2) GERD (gastroesophageal reflux disease): Mild GERD symptoms. - Famotidine IV (3) Glycosuria: UA in ED was noted to have glucose. No hx of diabetes. A1c was 5.6%. - Recheck in the morning - Outpatient follow up if still positive. (4) DVT prophylaxis: SCDs - Low DVT risk per admission calculator History of Present Illness Primary Care Provider: Adrian Isabel MD 63-year-old female with a history of abdominal surgery in 1999 who presents with small bowel obstruction. She reports that she was on vacation with her and felt "off" the entire time that she is on vacation. She reports some occasional nausea and unsettled stomach. On Friday night into Friday she reports greatly increased cramping abdominal pain centered around the umbilicus. She also has occasional sharp stabbing pain that occurs every 15 minutes or so. She had one episode of emesis overnight that was just watery. She denies any coffee-ground emesis or bilious emesis. She remains nauseated. Interestingly, she reports that she has followed her normal bowel habits, having her last BM at approximately 4 AM this morning. She denies it was bloody or melanotic. Normal consistency as well. Allergies Allergy/AdvReac Type Severity Reaction Status Date / Time Sulfa (Sulfonamide Allergy Intermediate HIVES Verified 11/16/18 05:11 Antibiotics) Home Medications Home Medications Medication Instructions Recorded Confirmed Type No Known Home Medications 11/16/18 11/16/18 History Past Med/Surg History Medical History Bowel obstruction (Resolved) GERD (gastroesophageal reflux disease) (Chronic) Surgical History H/O exploratory laparotomy History of oophorectomy History of tubal ligation Family History Other No pertinent family history in first degree relatives Social History Preferred Language: Sierra Leonean Communication Ability: Effective Beliefs That Will Affect Care: None Current Living Situation: Spouse Other Information That Helps Us Care for You: No Feels Safe at Home: Yes Safety Concerns: Feels Safe At This Time Smoking Status: Current every day smoker Tobacco Type: cigarettes ; Cigarettes Per Day: 20 ; Hx Alcohol Use: No Hx Substance Use: No Review of Systems Review of Systems: All systems reviewed & are unremarkable except as noted in HPI & below Physical Exam Constitutional: WD/WN, vitals as above Eyes: EOM intact bilaterally; no conjunctival abnormality ENMT: external ear and nose normal, oropharynx normal Neck: trachea midline, no thyromegaly normal visual inspection Respiratory: normal respiratory effort, lungs clear to auscultation no respiratory distress Cardiovascular: RRR, no murmur, no edema Gastrointestinal (Abdomen): Inspection/Auscultation: abdomen normal to inspection and + hypoactive bowel sounds; abdomen not distended Percussion/ Palpation: abdomen soft; abdomen nontender, no guarding and abdomen not rigid Musculoskeletal: no cyanosis or clubbing, extremities motor strength 5/5 Skin: no rashes, warm and dry Neurologic: moves all extremities and awake Psychiatric: Orientation: alert, oriented to person and cooperative Results & Data Vital Signs (Past 12 Hours) Vital Signs Temp Pulse Resp BP Pulse Ox 11/16/18 15:32 37.0 C 69 16 113/70 96 11/16/18 09:11 36.7 C 67 18 116/66 95 11/16/18 08:28 60 16 120/68 98 11/16/18 06:35 64 18 125/56 L 95 11/16/18 05:45 72 18 130/56 L 93 Code Status & VTE Plan VTE Prophylaxis Plan VTE Prophylaxis will be ordered: Yes PG Care Time/CCT Total # of Minutes Spent Total Time Spent with Patient: Total time spent is greater than 50% in coordination of care (as documented) at patient's floor/unit and/or counseling patient:
[2018-11-17 01:37] LABS: Appearance Urine Clear (Clear); Bacteria Urine Automated Negative (Negative); Bilirubin Urine Negative (Negative); Blood Urine Trace (Negative); Cast Urine Automated 0 /lpf (0-5); Color Urine Yellow; Epithelial Cell Urine Auto 0-5 /lpf (0-5); Glucose Urine UA Negative (Negative); Ketones Urine Negative (Negative); Leukocyte Esterase Urine Negative (Negative); Nitrite Urine Negative (Negative); Protein Urine Negative (Negative); RBC Urine Automated 0-4 /hpf (0-4); Specific Gravity Urine 1.013 (1.000-1.030); Urobilinogen Urine Negative (Negative); pH Urine 5.5 (4.5-7.5)
[2018-11-17 07:30] LABS: Hematocrit (blood only) 43.4 % (37-47); Hemoglobin 14.4 g/dL (12.0-16.0); Mean Corpuscular Hemoglobin 31.4 pg (25-34); Mean Corpuscular Hgb Conc 33.2 g/dL (32-36); Mean Corpuscular Volume 94.6 fL (80-100); Platelet Count 262 K/uL (130-400); RDW Coefficient of Variation 12.9 % (11.5-14.5); RDW Standard Deviation 44.5 fL (36.4-46.3); Red Blood Count 4.59 M/uL (4.2-5.4); White Blood Count 10.33 K/uL (4.8-10.8)
[2018-11-17 08:01] LABS: BUN Creatinine Ratio 15.6 (10-20); Calcium 9.5 mg/dl (8.5-10.1); Creatinine Clr Calc Pharmacy 67.1 ml/min; Est GFR (African American) 100.9; Magnesium 2.1 mg/dl (1.8-2.4); Phosphorus 3.8 mg/dl (2.5-4.9)
[2018-11-17] MEDS: CIPROFLOXACIN 400 MG/200 ML BAG IV SCH ×2 (09:24→20:16)
[2018-11-17] MEDS: FAMOTIDINE 20 MG in SYRINGE 3 ML IV SCH (09:32)
[2018-11-17] MEDS: NORMOSOL-R 1,000 ML IV SCH ×2 (11:21→22:24)
--- NOTE | 2018-11-17 11:44 | Surgery Progress Note ---
Date of Service November 17, 2018 Assessment & Plan (1) Small bowel obstruction: 63 year-old female with history of SBO and exploratory laparotomy (unknown if bowel resected) in 1999 who presented to emergency department with complaint of abdominal pain , nausea, and one episode of vomiting. Pain similar to prior SBO. Labs show leukocytosis of 14K. Lactic acid wnl at 1.4. Abdomen soft, nondistended, faint bowel sounds in LUQ, tenderness in RUQ. No peritonitis. 11/17/2018 - Abdominal pain resolved today, no nausea or vomiting - passing small amount of flatus but not much - RUQ abdominal pain on examination Plan: Recommend to continue conservative management at this time. No acute surgical intervention required. Continue IV fluids, NPO and bowel rest, Pain management as needed but limit narcotics if possible, IV zofran prn nausea. Continue IV Pepcid given GERD symptoms Keep NPO this morning, if passes more flatus can start clear liquids slowly Encouraged OOB to chair and ambulate hallway as much as she can Continue medical management Subjective feeling better today no further abdominal pain, does not feel bloated passed only small amount of flatus no bowel movement walking more today (did not walk yesterday was too tired) no nausea or vomiting Physical Exam Constitutional: WD/WN, vitals as above no acute distress Gastrointestinal (Abdomen): Inspection/Auscultation: abdomen normal to inspection, normal bowel sounds and + abdominal surgical scar (midline laparo wan scar present); abdomen not distended Percussion/Palpation: + abdomen tender (RUQ) and abdomen soft; no guarding and abdomen not rigid Skin: no rashes, warm and dry Psychiatric: A+Ox3, euthymic affect Results & Data Vital Signs (Past 12 Hours) Vital Signs Temp Pulse Resp BP Pulse Ox 11/17/18 07:32 36.7 C 69 16 110/62 93 Laboratory Results 11/17/18 11/17/18 11/17/18 Range/Units 07:11 07:11 01:29 WBC 10.33 (4.8-10.8) K/uL RBC 4.59 (4.2-5.4) M/uL Hgb 14.4 (12.0-16.0) g/dL Hct 43.4 (37-47) % MCV 94.6 (80-100) fL MCH 31.4 (25-34) pg MCHC 33.2 (32-36) g/dL RDW Std Deviation 44.5 (36.4-46.3) fL RDW Coeff of Aster 12.9 (11.5-14.5) % Plt Count 262 (130-400) K/uL MPV 10.0 (7.4-10.4) fL Sodium 140 (136-145) mmol/L Potassium 4.0 (3.5-5.1) mmol/L Chloride 106 (98-107) mmol/L Carbon Dioxide 28 (21-32) mmol/L Anion Gap 6.0 (3-11) BUN 11 (7-18) mg/dl Creatinine 0.73 (0.6-1.2) mg/dl Est Cr Clr Drug Dosing 67.1 ml/min Est GFR ( Amer) 100.9 Est GFR (Non-Af Amer) 87.0 BUN/Creatinine Ratio 15.6 (10-20) Glucose 93 (70-99) mg/dl Calcium 9.5 (8.5-10.1) mg/dl Phosphorus 3.8 (2.5-4.9) mg/dl Magnesium 2.1 (1.8-2.4) mg/dl Urine Color Yellow Urine Appearance Clear (Clear) Urine pH 5.5 (4.5-7.5) POC Urine pH Ur Specific [place] 1.013 (1.000-1.030) Urine Protein Negative (Negative) Urine Glucose (UA) Negative (Negative) Urine Ketones Negative (Negative) Urine Blood Trace H (Negative) Urine Nitrite Negative (Negative) Urine Bilirubin Negative (Negative) POC Urine Bilirubin Urine Urobilinogen Negative (Negative) POC Urine Urobilinogen Ur Leukocyte Esterase Negative (Negative) Urine WBC (Auto) 1-5 (0-5) /hpf Urine RBC (Auto) 0-4 (0-4) /hpf U Hyaline Cast (Auto) 0 (0-5) /lpf U Epithel Cells (Auto) 0-5 (0-5) /lpf Urine Bacteria (Auto) Negative (Negative) 11/16/18 Range/Units 05:20 WBC (4.8-10.8) K/uL RBC (4.2-5.4) M/uL Hgb (12.0-16.0) g/dL Hct (37-47) % MCV (80-100) fL MCH (25-34) pg MCHC (32-36) g/dL RDW Std Deviation (36.4-46.3) fL RDW Coeff of Aster (11.5-14.5) % Plt Count (130-400) K/uL MPV (7.4-10.4) fL Sodium (136-145) mmol/L Potassium (3.5-5.1) mmol/L Chloride (98-107) mmol/L Carbon Dioxide (21-32) mmol/L Anion Gap (3-11) BUN (7-18) mg/dl Creatinine (0.6-1.2) mg/dl Est Cr Clr Drug Dosing ml/min Est GFR ( Amer) Est GFR (Non-Af Amer) BUN/Creatinine Ratio (10-20) Glucose (70-99) mg/dl Calcium (8.5-10.1) mg/dl Phosphorus (2.5-4.9) mg/dl Magnesium (1.8-2.4) mg/dl Urine Color Urine Appearance (Clear) Urine pH (4.5-7.5) POC Urine pH Not Reportable Ur Specific [place] (1.000-1.030) Urine Protein (Negative) Urine Glucose (UA) (Negative) Urine Ketones (Negative) Urine Blood (Negative) Urine Nitrite (Negative) Urine Bilirubin (Negative) POC Urine Bilirubin Not Reportable Urine Urobilinogen (Negative) POC Urine Urobilinogen Not Reportable Ur Leukocyte Esterase (Negative) Urine WBC (Auto) (0-5) /hpf Urine RBC (Auto) (0-4) /hpf U Hyaline Cast (Auto) (0-5) /lpf U Epithel Cells (Auto) (0-5) /lpf Urine Bacteria (Auto) (Negative)
--- NOTE | 2018-11-17 11:59 | Surgery Progress Note ---
Date of Service pt is doing better, passed a little gas, no bm yet, no abdominal pain, no vomiting, no fever. November 17, 2018 Assessment & Plan (1) Small bowel obstruction: 63 year-old female with history of SBO and exploratory laparotomy (unknown if bowel resected) in 1999 who presented to emergency department with complaint of abdominal pain , nausea, and one episode of vomiting. Pain similar to prior SBO. Labs show leukocytosis of 14K. Lactic acid wnl at 1.4. Abdomen soft, no ndistended, faint bowel sounds in LUQ, tenderness in RUQ. No peritonitis. 11/17/2018 - Abdominal pain resolved today, no nausea or vomiting - passing small amount of flatus but not much - RUQ abdominal pain on examination Plan: Recommend to continue conservative management at this time. No acute surgical intervention required. Continue IV fluids, NPO and bowel rest, Pain management as needed but limit narcotics if possible, IV zofran prn nausea. Continue IV Pepcid given GERD symptoms Keep NPO this morning, if passes more flatus can start clear liquids slowly Encouraged OOB to chair and ambulate hallway as much as she can Continue medical management 11/17/2018 11:58am doing better, continue treatment, clear diet, miralax will F/U Physical Exam Constitutional: WD/WN, vitals as above well developed and well nourished Neck: trachea midline, no thyromegaly Respiratory: normal respiratory effort, lungs clear to auscultation Cardiovascular: RRR, no murmur, no edema Rate/Rhythm: regular rate and regular rhythm Gastrointestinal (Abdomen): normal bowel sounds, soft, nontender, no hepatosplenomegaly Percussion/Palpation: abdomen soft mild tenderness at RUQ, no rebound pain, BS +. Musculoskeletal: no cyanosis or clubbing, extremities motor strength 5/5 Skin: no rashes, warm and dry Neurologic: awake Psychiatric: Orientation: alert and oriented x 3 Results & Data Vital Signs (Past 12 Hours) Vital Signs Temp Pulse Resp BP Pulse Ox 11/17/18 07:32 36.7 C 69 16 110/62 93 Laboratory Results Abnormal lab results 11/17/18 Range/Units 01:29 Urine Blood Trace H (Negative)
[2018-11-17] MEDS: POLYETHYLENE (MIRALAX) 17 GM PACK PO SCH (13:23)
--- NOTE | 2018-11-17 18:15 | Hospitalist Progress Note ---
Date of Service November 17, 2018 Assessment & Plan (1) Bowel obstruction: S/p ex-lap in ~1999 for a similar issue. Clinically improving, clear liquid diet, serial exams. Low threshold to DC antibiotics. (2) GERD (gastroesophageal reflux disease): Mild GERD symptoms. - Famotidine IV (3) Glycosuria: No hx of diabetes. A1c was 5.6%. (4) DVT prophylaxis: SCDs - Low DVT risk per admission calculator Subjective Feeling a good deal better overall. No nausea no bloating and pain has improved a good deal. Tolerating ice chips without any postprandial symptoms. Review of Systems Review of Systems: All systems reviewed & are unremarkable except as noted in HPI & below Physical Exam Physical Exam: In general she is awake and alert pleasant no distress. HEENT normocephalic atraumatic mucous members are moist. Breathing unlabored no accessory muscle use good effort. Abdomen is soft nondistended mild tenderness throughout no guarding/rebound/rigidity. Extremities show no sinus clubbing or edema no calf tenderness. No focal neuro deficits. Skin shows no rashes no pallor or icterus. Results & Data Vital Signs (Past 12 Hours) Vital Signs Temp Pulse Resp BP Pulse Ox 11/17/18 14:58 98.6 F 62 17 111/71 95 11/17/18 07:32 98.1 F 69 16 110/62 93 PG Care Time/CCT Total # of Minutes Spent Total Time Spent with Patient: Total time spent is greater than 50% in coordination of care (as documented) at patient's floor/unit and/or counseling patient:
[2018-11-18 05:32] LABS: BUN Creatinine Ratio 14.6 (10-20); Calcium 8.4 mg/dl (8.5-10.1); Creatinine Clr Calc Pharmacy 66.1 ml/min; Est GFR (African American) 99.2; Est GFR (Non-African American) 85.6
[2018-11-18] MEDS: CIPROFLOXACIN 400 MG/200 ML BAG IV SCH (07:40)
[2018-11-18] MEDS: POLYETHYLENE (MIRALAX) 17 GM PACK PO SCH (07:40)
[2018-11-18] MEDS: FAMOTIDINE 20 MG in SYRINGE 3 ML IV SCH (07:40)
--- NOTE | 2018-11-18 10:06 | Surgery Progress Note ---
Date of Service November 18, 2018 Assessment & Plan (1) Small bowel obstruction: Resolved + bowel function abdominal pain , nausea, and vomiting resolved Plan: advance diet to full liquids for lunch continue ambulation d/c IV abx after this morning dose is finished, no further needed may shower advised pt low fiber diet in next few weeks and then slowly increase amount in diet, eat smaller frequent meals and advance diet as tolerated at home. okay from surgical standpoint for discharge this afternoon. Dr. Merida has seen patient, agrees with above. Subjective feeling well, had two bowel movements this morning no abdominal pain, no n/v tolerated clear liquids ambulating the hallway multiple times ready to go home Physical Exam Constitutional: WD/WN, vitals as above no acute distress Gastrointestinal (Abdomen): Inspection/Auscultation: abdomen normal to inspection and normal bowel sounds; abdomen not distended Percussion/Palpation: + abdomen tender (RUQ but improved) and abdomen soft; no guarding and abdomen not rigid Skin: no rashes, warm and dry Psychiatric: A+Ox3, euthymic affect Results & Data Vital Signs (Past 12 Hours) Vital Signs Temp Pulse Resp BP Pulse Ox 11/18/18 07:29 36.8 C 63 16 125/60 97 11/17/18 23:01 36.7 C 61 16 124/67 94 Laboratory Results 11/18/18 Range/Units 04:46 Sodium 143 (136-145) mmol/L Potassium 4.0 (3.5-5.1) mmol/L Chloride 108 H (98-107) mmol/L Carbon Dioxide 33 H (21-32) mmol/L Anion Gap 2.0 L (3-11) BUN 11 (7-18) mg/dl Creatinine 0.74 (0.6-1.2) mg/dl Est Cr Clr Drug Dosing 66.1 ml/min Est GFR ( Amer) 99.2 Est GFR (Non-Af Amer) 85.6 BUN/Creatinine Ratio 14.6 (10-20) Glucose 82 (70-99) mg/dl Calcium 8.4 L (8.5-10.1) mg/dl
[2018-11-18] MEDS: NORMOSOL-R 1,000 ML IV SCH (11:36)
--- NOTE | 2018-11-18 16:09 | Discharge Summary ---
Date of Service November 18, 2018 Admission HPI Per Admitting Provider 63-year-old female with a history of abdominal surgery in 1999 who presents with small bowel obstruction. She reports that she was on vacation with her and felt "off" the entire time that she is on vacation. She reports some occasional nausea and unsettled stomach. On Friday night into Friday she reports greatly increased cramping abdominal pain centered around the umbilicus. She also has occasional sharp stabbing pain that occurs every 15 minutes or so. She had one episode of emesis overnight that was just watery. She denies any coffee-ground emesis or bilious emesis. She remains nauseated. Interestingly, she reports that she has followed her normal bowel habits, having her last BM at approximately 4 AM this morning. She denies it was bloody or melanotic. Normal consistency as well. Principal Diagnosis Adhesional small bowel obstruction Discharge Exam General she is awake and alert and oriented pleasant no distress. HEENT normocephalic atraumatic mucous membranes moist. Abdomen is soft nondistended mild tenderness without guarding rebound or rigidity. No cyanosis. No focal ne uro deficits. Skin shows no rashes, no pallor or icterus. Discharge Data Allergies Allergy/AdvReac Type Severity Reaction Status Date / Time Sulfa (Sulfonamide Allergy Intermediate HIVES Verified 11/16/18 05:11 Antibiotics) Consultations 11/16/18 06:06 ED Decision to Admit Stat 11/16/18 09:21 Consult General Surgery Routine Ordered Studies 11/16/18 05:18 CT abd pelvis IV con only Urgent Hospital Course (1) Bowel obstruction: S/p ex-lap in ~1999 for a similar issue. Appeared adhesional, improved quite quickly, tolerated low-fat diet, stable for home. Outpatient follow-up. (2) GERD (gastroesophageal reflux disease): Mild GERD symptoms. Was given famotidine during her inpatient stay, but does not appear that outpatient medications would be needed (3) Glycosuria: No hx of diabetes. A1c was 5.6%. (4) DVT prophylaxis: SCDs - Low DVT risk per admission calculator (5) Discharge planning issues: Stable for discharge to home, follow-up with PCP, follow-up with surgery if needed. Total Time Total Time Spent Total Time Spent (In Minutes): Greater than 30 Discharge Plan Discharge Items Patient Disposition: Home - Self-Care Reason For Visit: SBO Discharge Diagnosis: small bowel obstruction - see below Activity: Resume your previous activity Non-emergency contact: Primary Care Provider Call non-emergency contact if: you have any medication questions and your symptoms worsen Follow-up/Referrals: Adrian Isabel MD [Primary Care Provider] - 11/24/18 11:30 am (Please, follow up at Dr. Isabel's office with his associate, Millie PRESCOTT, on FridayNovember 24 at 11:30 am. 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 - You can follow-up in surgical office in 1-2 weeks if needed. Call office at [phone] to make an appointment. Pending Studies at Discharge: No Stand-Alone Forms: Call Back Authorization, [facility] Medications and DC Order Prescriptions: Continued No Known Home Medications RF: 0 Discharge Orders: Discharge Order (Routine); Ordered 11/18/18 Ordered By: Juno Chang Admission Data Admit Date/Time: 11/16/18 08:13 Attending Provider: Juno Chang Admit Provider: Benja Torres Primary Care Provider: Adrian Isabel Other Providers: Charlie Mehta ; Kavita Merida ; Benja Torres
== END 2018-11-18 17:50 | disposition home or self-care (01) | DRG 390 ==
LOC: ED 04:21 → SUATTDRO 08:13 → 3W 08:13